=== PATIENT | male | born 1970 | race African-American/Black ===

== ENCOUNTER 2017-10-05 15:10 | Emergency (ER) | payer OTHER ==
[~2017-10-05] VITALS: Ht 172.7 cm; Wt 81.7 kg
[~2017-10-05 15:10] MED LIST: ACYCLOVIR 400400 MG PO; EYE DROP TEARS15 ML OP; PREDNISONE 20 M20 MG PO
[2017-10-05] MEDS ORDERED: MOBIC15 MG PO (16:05)
[2017-10-05 16:30] VITALS: BP 170/103
== END 2017-10-05 16:40 | disposition home or self-care (01) ==
LOC: ER 15:10
DX: M25.551 Pain in right hip (principal); M54.5 Low back pain